=== PATIENT | male | born 1970 | race Caucasian/White ===

== ENCOUNTER 2020-04-23 09:48 | Emergency (ER) | payer OTHER ==
[~2020-04-23] VITALS: Ht 177.8 cm; Wt 145.2 kg
[~2020-04-23 09:48] MED LIST: ALLOPURINOL; FLOMAX; IBUPROFEN 800800 M1 PO; LEVSIN; NORCO 5-325 TA1 EACH PO; PYRIDIUM200 M1; VICODIN 5-5001 EACH; ZOLOFT 50 MG TA50 M1
[2020-04-23 10:15] LABS: ABSOLUTE BASOPHILS 0.1 thou/uL (0.0-0.2); ABSOLUTE EOSINOPHILS 0.2 thou/uL (0.0-0.7); ABSOLUTE LYMPHOCYTES 4.7 thou/uL (0.8-5.3); ABSOLUTE MONOCYTES 0.8 thou/uL (0.0-1.2); ABSOLUTE NEUTROPHILS 5.6 thou/uL (1.6-8.1); EOSINOPHILS 1.8 %; HEMATOCRIT 54.1 % (42.0-52.0); HEMOGLOBIN 18.6 gm/dL (14.0-18.0); MCHC 34.5 g/dL (28.0-37.0); MCV 90.1 fL (80.0-100.0); MONOCYTES 7.4 %; MPV 7.6 fl. (7.2-11.1); NUCLEATED RBCS 0 /100WBC; PLATELET COUNT* 273 thou/uL (150-400); POLYS 48.8 %; RBC 6.01 mil/uL (4.50-6.00); RDW-CV 11.7 % (10.5-14.5); WBC 11.4 thou/uL (4.0-11.0)
[2020-04-23 10:19] LABS: CALCIUM 9.2 mg/dL (8.5-10.1); CREATININE 1.6 mg/dL (0.6-1.3); POTASSIUM 3.7 mmol/L (3.5-5.1)
[2020-04-23] MEDS ORDERED: JARDIANCE10 MG PO (10:19)
[2020-04-23] MEDS ORDERED: METFORMIN HCL500 M3 PO (10:19)
[2020-04-23] MEDS ORDERED: LEVOTHYROXINE50 MC1 PO (10:20)
[2020-04-23] MEDS ORDERED: ALLEGRA ALLERGY60 MG PO (10:21)
[2020-04-23 10:29] LABS: ALBUMIN 4.3 g/dL (3.4-5.0); MAGNESIUM 2.2 mg/dL (1.8-2.4); TOTAL BILIRUBIN 0.7 mg/dL (<0.1-1.0); TOTAL PROTEIN 8.2 g/dL (6.4-8.2)
[2020-04-23 13:09] VITALS: BP 114/70
--- NOTE | 2020-04-23 18:09 | EKG ---
[place] [address] ELECTROCARDIOGRAM REPORT Name: ZAYRA CORTES Room: [facility]#: [id number] Admission: 04/23/20 Attend Phys: Discharge: 04/23/20 Date of : 74 Date of Service: 04/23/20 0950 Report #: [id number] THIS REPORT FOR: //name// [facility] ED Test Date: 2020-04-23 Test Time: 09:50:36 Pat Name: ZAYRA CORTES Department: Room: Gender: Auditor Medical Claims: : 1970 Requested By: Cristofer Vazquez Order Number: [id number] MD: Jaime Hadley Measurements Intervals [place] Rate: 178 P: 0 NV: QRS: 45 QRSD: 123 T: -86 QT: 257 QTc: 443 Interpretive Statements Wide-QRS tachycardia, suspect SVT with aberrancy Nonspecific intraventricular conduction delay No previous ECG available for comparison Electronically Signed On 04-23-2020 18:09:22 VISUAL COORDINATOR by Jaime Hadley [email or web address] <ELECTRONICALLY SIGNED> By: Jaime Hadley MD, [facility] 04/23/20 1809 0950 0950 Jaime Hadley MD, [facility] /EPI
--- NOTE | 2020-04-23 18:09 | EKG ---
[place] [address] ELECTROCARDIOGRAM REPORT Name: ZAYRA CORTES Room: [facility]#: [id number] Admission: 04/23/20 Attend Phys: Discharge: 04/23/20 Date of : 74 Date of Service: 04/23/20 1002 Report #: [id number] THIS REPORT FOR: //name// [facility] ED Test Date: 2020-04-23 Test Time: 10:02:26 Pat Name: ZAYRA CORTES Department: Room: Gender: It Senior Analyst: : 1970 Requested By: Cristofer Vazquez Order Number: [id number] MD: Jaime Hadley Measurements Intervals [place] Rate: 106 P: 53 [place]: 163 QRS: 30 QRSD: 100 T: -5 QT: 325 QTc: 432 Interpretive Statements Sinus tachycardia Borderline repolarization abnormality Compared to ECG 04/23/2020 09:50:36 Intraventricular conduction delay no longer present Electronically Signed On 04-23-2020 18:09:28 REGIONAL RECRUITER by Jaime Hadley [email or web address] <ELECTRONICALLY SIGNED> By: Jaime Hadley MD, [facility] 04/23/20 1809 1002 1002 Jaime Hadley MD, [facility] /EPI
== END 2020-04-23 13:09 | disposition home or self-care (01) ==
LOC: M.ERS 09:48
PROVIDERS: Emergency Medicine Emergency Medical Services
DX: I47.1 Supraventricular tachycardia (principal); Z88.0 Allergy status to penicillin; Z88.5 Allergy status to narcotic agent; Z87.442 Personal history of urinary calculi

== ENCOUNTER → 2020-06-01 | Outpatient (CLI) | payer OTHER ==
[~2020-06-01] MED LIST changes: +ALLEGRA ALLERGY60 MG PO; +JARDIANCE10 MG PO; +LEVOTHYROXINE50 MC1 PO; +METFORMIN HCL500 M3 PO
--- NOTE | 2020-06-13 19:06 | SLEEP ---
[address] [address] SLEEP STUDY REPORT Name: ZAYRA CORTES Ray Room: [facility]#: [id number] Admission: 06/01/20 Attend Phys: DOT Pink Discharge: Date of : 74 Report #: [id number] THIS REPORT FOR: cc: Eitan Crawford MD, Bruce D. MD ~ Julio Rios MD This study has been reviewed in its entirety by a board certified sleep specialist DATE OF SERVICE: 06/02/2020 SLEEP STUDY INTERPRETATION: Total duration of the study is 437 minutes. During this time duration, we recorded multiple sleep related respiratory events. These included, 54 obstructive apneas in addition to 166 hypopneas. The overall apnea-hypopnea index was 35.1. Body position data indicates the patient is lying on his right side throughout the sleep study. There is marked nocturnal hypoxemia. The patient spent 42 minutes below an O2 saturation of 90%, out of which 11 minutes were spent below an O2 saturation of 88%. Mean heart rate was 79. IMPRESSION: Severe obstructive sleep apnea with an apnea-hypopnea index of 35.1 with mild nocturnal hypoxemia as described above. RECOMMENDATIONS: Considering the severity of his obstructive sleep apnea, I favor proceeding to a repeat sleep study in the sleep lab for positive airway pressure titration instead of the use of a CPAP auto titrated device. <ELECTRONICALLY SIGNED> By: Julio Rios MD 06/13/20 1906 1805 1832AMD bright Leonardo
== END ==
LOC: M.PUL 10:00
PROVIDERS: ATTEND Registered Nurse
DX: G47.33 Obstructive sleep apnea (adult) (pediatric) (principal)

== ENCOUNTER 2021-03-08 05:34 | Observation (INO) | payer OTHER ==
[~2021-03-08] VITALS: Ht 185.4 cm; Wt 131.5 kg
--- NOTE | ~2021-03-08 | OP ---
[address] [address] OPERATIVE REPORT Name: ZAYRA CORTES Room: [address] MMirandaRMiranda#: [id number] Admission: 03/08/21 Attend Phys: Leroy Womack Discharge: Date of : 74 Report #: [id number] THIS REPORT FOR: cc: Eitan Crawford MD, Bruce D. MD Haggard, Kent L MD ~ DATE OF SURGERY: 03/10/2021 PREOPERATIVE DIAGNOSIS: A 4 mm proximal left ureteral stone. POSTOPERATIVE DIAGNOSIS: A 4 mm proximal left ureteral stone with hypospadias. PROCEDURES: Urethral dilation, cystoscopy, left retrograde pyelogram, left ureteroscopy with holmium laser lithotripsy, ureteroscopic stone extraction, placement of left ureteral stent. STAFF SURGEON: Micah Monroe MD WEATHER ALGORITHM SCIENTIST: None. ANESTHESIA: General. ESTIMATED BLOOD LOSS: None. COMPLICATIONS: None. SPECIMENS: Left ureteral stone fragments. DRAINS: A 28 cm x 4.8-Czech left ureteral stent. INDICATIONS: The patient is a pleasant 50-year-old white male with history of kidney stones who presented with acute-onset left flank pain. CT scan confirmed a 4 mm proximal left ureteral stone. He was counseled regarding treatment options, elected for definitive cystoscopy, left retrograde pyelogram, left ureteroscopy, possible holmium laser lithotripsy, possible placement of left ureteral stent. After risks and benefits of the procedure explained, informed consent was obtained. DESCRIPTION OF PROCEDURE: The patient was taken to the operating room, comfortably placed in a dorsal lithotomy position under adequate general anesthesia. He was sterilely prepped and draped in standard fashion exposing only the genitalia. He received his antibiotic therapy as prescribed ciprofloxacin 400 mg intravenously. Appropriate timeout was carried out and all were in agreement. The patient was found to have a subcoronal hypospadias. [place] sounds were gently used from 16-Czech to 22-Czech used to dilate up the urethra. We were able to get the 22-Czech cystoscope [place] [address] OPERATIVE REPORT Name: ZAYRA CORTES Room: [address] M.R.#: [id number] Admission: 03/08/21 Attend Phys: Leroy Womack Discharge: Date of : 74 Report #: [id number] without difficulty. The remaining part of the urethra was normal. Sphincter was intact. Prostate had minimal hyperplasia. Bladder was systematically viewed. Both ureteral orifices were identified normal. No bladder calculi seen or foreign body observed. Mucosa was smooth. An 8-Czech cone-tipped catheter was placed in left ureteral orifice and a retrograde pyelogram was performed showing a normal-caliber ureter up to a filling defect in the proximal ureter corresponding to a stone on CT scan. A 0.035 ZIPwire was gently placed up the left ureter to the level of kidney. The cystoscope was removed. A 4.5-Czech tapered to a 6.5-Czech Lazaro semi-rigid ureteroscope was advanced through the urethra up the left ureter to the level of stone. A 272 micron holmium laser fiber set at shock pulse at 0.5 and 15, tried to break up the stone, began to migrate more proximally. A 1.9-Czech nitinol basket was gently used to basket the stone and gently pull it down to near the ureterovesical junction where it began to meet resistance. At this point, a laser fiber was placed beside the basket wire through the ureteroscope and the basket was opened up exposing the stone. The laser fiber was now set at 6.4 conn, used to fragment the stone within the basket in multiple fragments enough to be able to free up the basket and was gently removed without difficulty. Repeat ureteroscopy went back and grabbed 2 fragments and brought out gently without difficulty. One more ureteroscopy was carried out through the urethra up the left ureter verifying no damage to the ureter. No residual fragments remained. Ureteroscope was removed. Cystoscope was backloaded over the guidewire and a 28 cm x 4.8-Czech ureteral stent was put in place, positioned with a good kidney and good coil in the bladder. The bladder was drained. Cystoscope was then removed. He was extubated in the operating room, transferred to [facility] with assistance and went to recovery room in stable condition. We will see him back in our office next week for cystoscopy and stent removal and in 6 weeks with a renal ultrasound. By: [id number] Antonieta Monroe MD /gena
[2021-03-08 05:39] VITALS: BP 168/89
[2021-03-08 06:10] LABS: URINE BILIRUBIN NEGATIVE (Negative); URINE BLOOD 1+ (Negative); URINE CLARITY CLEAR; URINE COLOR YELLOW; URINE GLUCOSE-RANDOM 2+ (Negative); URINE KETONES TRACE (Negative); URINE LEUKOCYTES-REFLEX NEGATIVE (Negative); URINE NITRITE-REFLEX NEGATIVE (Negative); URINE PROTEIN NEGATIVE (Negative); URINE SPECIFIC GRAVITY 1.025 (1.005-1.030); URINE UROBILINOGEN 0.2 E.U./dl (0.2-1.0)
[2021-03-08 06:12] LABS: ABSOLUTE BASOPHILS 0.1 thou/uL (0.0-0.2); ABSOLUTE EOSINOPHILS 0.1 thou/uL (0.0-0.7); ABSOLUTE LYMPHOCYTES 1.9 thou/uL (0.8-5.3); ABSOLUTE MONOCYTES 0.6 thou/uL (0.0-1.2); ABSOLUTE NEUTROPHILS 7.4 thou/uL (1.6-8.1); BASOPHILS 0.6 %; EOSINOPHILS 1.4 %; HEMATOCRIT 46.4 % (42.0-52.0); HEMOGLOBIN 16.3 gm/dL (14.0-18.0); LYMPHOCYTES 18.7 %; MCH 31.7 pg (26.0-34.0); MCHC 35.1 g/dL (28.0-37.0); MCV 90.5 fL (80.0-100.0); MONOCYTES 5.8 %; MPV 7.6 fl. (7.2-11.1); NUCLEATED RBCS 0 /100WBC; PLATELET COUNT* 232 thou/uL (150-400); POLYS 73.5 %; RBC 5.13 mil/uL (4.50-6.00); RDW-CV 12.3 % (10.5-14.5); WBC 10.1 thou/uL (4.0-11.0)
[2021-03-08 06:27] LABS: BACTERIA-REFLEX 1-9 Few /HPF (None Seen); CASTS None Seen /LPF (None Seen); CRYSTALS None Seen /LPF (None Seen); MUCUS None Seen strn/LPF (None Seen); SQUAMOUS 4-10 Moderate /LPF (0-3); URINE RBC 3-10 Few /HPF (0-2); URINE WBC-REFLEX 0-5 Rare /HPF (0-5)
[2021-03-08 06:30] LABS: CALCIUM 8.8 mg/dL (8.5-10.1); CREATININE 1.8 mg/dL (0.6-1.3); POTASSIUM 4.3 mmol/L (3.5-5.1)
[2021-03-08] MEDS ORDERED: HYDROCODON-ACE1 EAC7 PO (13:43)
[2021-03-08 18:48] VITALS: BP 165/91
[2021-03-09 00:14] VITALS: BP 169/61
--- NOTE | 2021-03-09 07:39 | NUR ---
PT SLEPT OFF AND ON OVERNIGHT. UP AD DENA IN ROOM VOIDING PER URINAL AND STRAINING URINE-NO STONES RETRIEVED. RAC IVF INFUSING PER PUMP. IV AND PO PAIN MED GIVEN PRN WITH FAIR RESULT. PT NPO SINCE MIDNIGHT FOR POSSIBLE UROLOGICAL PROCEDURE FOR URETERAL STONE. ABLE TO USE CALL LITE AND MAKE NEEDS KNOWN.
[2021-03-09 08:31] LABS: HEMATOCRIT 44.2 % (42.0-52.0); HEMOGLOBIN 15.4 gm/dL (14.0-18.0); MCH 31.9 pg (26.0-34.0); MCHC 34.8 g/dL (28.0-37.0); MCV 91.6 fL (80.0-100.0); MPV 7.7 fl. (7.2-11.1); RBC 4.82 mil/uL (4.50-6.00); RDW-CV 12.7 % (10.5-14.5); WBC 9.3 thou/uL (4.0-11.0)
[2021-03-09 08:35] VITALS: BP 183/98
[2021-03-09 08:46] LABS: CALCIUM 8.1 mg/dL (8.5-10.1); CREATININE 1.6 mg/dL (0.6-1.3); POTASSIUM 4.7 mmol/L (3.5-5.1)
--- NOTE | 2021-03-09 10:16 | NUR ---
ADMISSION ASSESSMENT MAR 09, 2021 ZAYRA CORTES ADMITTED FROM HOME MENTAL STATUS A & O X3 LIVING ARRANGEMENT: HOUSE, 15 STAIRS TO BR SUPPORT SYSTEM: , ANA CORTES CELL: [phone] CAN RETURN TO PRIOR LIVING ARRANGEMENTS: YES ADL'S: INDEPENDENT ASSISTIVE DEVICES: NONE PRIOR RESOURCES NONE PCP: DR. JESSICA ARCOS
[2021-03-09 16:35] VITALS: BP 156/77
--- NOTE | 2021-03-09 18:15 | NUR ---
PATIENT RESTING IN BED. PATIENT HAS HAD LEFT FLANK PAIN THROUGHOUT DAY, TREATED PARTIALLY WITH MEDICATION. PATIENT HAS STRAINED URINE THROUGHOUT DAY WITH NO STONES PASSES. PATIENT HAS POOR APPETITE. PATIENT HAS REFUSED INSULIN. PATIENT IS UP AD DENA IN ROOM. PATIENT DENIES ANY NEEDS AT THIS TIME. CALL LIGHT WITHIN REACH.
[2021-03-09 20:00] VITALS: BP 162/70
[2021-03-10 04:13] LABS: HEMATOCRIT 42.1 % (42.0-52.0); HEMOGLOBIN 14.5 gm/dL (14.0-18.0); MCH 31.7 pg (26.0-34.0); MCHC 34.4 g/dL (28.0-37.0); MCV 92.3 fL (80.0-100.0); MPV 7.2 fl. (7.2-11.1); RBC 4.56 mil/uL (4.50-6.00); RDW-CV 12.1 % (10.5-14.5); WBC 7.4 thou/uL (4.0-11.0)
[2021-03-10 04:22] LABS: CALCIUM 8.1 mg/dL (8.5-10.1); CREATININE 1.2 mg/dL (0.6-1.3); POTASSIUM 4.1 mmol/L (3.5-5.1)
[2021-03-10 06:04] VITALS: BP 162/70
--- NOTE | 2021-03-10 08:43 | NUR ---
Case and plan of care reviewed with physician each weekday during patient's length of stay. Continue plan of care per physician orders. Pt is scheduled for L Cysto w/Laser, stent at 0710 this am. Plan is to discharge post op. CM will continue to follow and reassess today for discharge needs post op.
[2021-03-10 09:05] VITALS: BP 149/92
[2021-03-10 09:41] VITALS: BP 162/70
[2021-03-10 10:27] VITALS: BP 162/70
--- NOTE | 2021-03-10 14:23 | EKG ---
[place] [address] ELECTROCARDIOGRAM REPORT Name: ZAYRA CORTES Room: [address]#: [id number] Admission: 03/08/21 Attend Phys: Loraine Duarte Discharge: 03/10/21 Date of : 74 Date of Service: 03/10/21 0648 Report #: [id number] THIS REPORT FOR: //name// [facility] Test Date: 2021-03-10 Test Time: 06:48:18 Pat Name: ZAYRA CORTES Department: Room: [address] Gender: M Production Supv: KENYETTA : 1970 Requested By: Kimberley Reed Order Number: [id number] Sabina MD: Roger Kebede Measurements Intervals [place] Rate: 78 P: 8 AK: 151 QRS: 30 QRSD: 94 T: 54 QT: 374 QTc: 426 Interpretive Statements Sinus rhythm Low voltage, precordial leads Compared to ECG 04/23/2020 10:02:26 Low QRS voltage now present Sinus tachycardia no longer present Electronically Signed On 03-10-2021 14:23:33 CDT by Roger Kebede [email or web address] <ELECTRONICALLY SIGNED> By: Roger Kebede MD, FACC 03/10/21 1423 0648 0648 Roger Kebede MD, FACC /EPI
[2021-03-16 16:07] LABS: STONE CA OXALATE DIHYDRATE 20 % (()); STONE CA OXALATE MONOHYDRATE 80 % (()); STONE COLOR Brown (()); STONE SIZE 3x3 mm (()); STONE WEIGHT 44 mg (())
== END 2021-03-10 10:25 | disposition home or self-care (01) ==
LOC: M.ERS 05:34 → M.TBA-ER 07:06 → M.3W 19:13
PROVIDERS: Emergency Medicine; Family Medicine; ADMIT Internal Medicine; ATTEND Internal Medicine
DX: N13.2 Hydronephrosis with renal and ureteral calculous obstruction (principal); Z20.822 Contact with and (suspected) exposure to COVID-19; N17.9 Acute kidney failure, unspecified; E11.9 Type 2 diabetes mellitus without complications; I47.1 Supraventricular tachycardia; F32.9 Major depressive disorder, single episode, unspecified; F41.9 Anxiety disorder, unspecified; Z23 Encounter for immunization; Z79.899 Other long term (current) drug therapy